=== PATIENT | female | born 1950 | race Caucasian/White ===

== ENCOUNTER 2017-11-04 14:56 | Outpatient (CLI) | payer MEDICARE | END 2017-11-04 14:57 | disposition home or self-care (01) | LOC: BICMAMMO 14:56 | PROVIDERS: ATTEND Family Medicine | DX: Z12.31 Encounter for screening mammogram for malignant neoplasm of breast (principal); Z80.3 Family history of malignant neoplasm of breast | CPT/HCPCS: 77063; 77067 ==

== ENCOUNTER 2018-10-06 07:28 | Outpatient (CLI) | payer MEDICARE ==
--- NOTE | 2018-10-06 15:11 | NM ---
NUCLEAR MEDICINE GASTRIC EMPTYING STUDY: HISTORY: Food in esophagus causing other injury, initial encounter. Hiatal hernia. Reflux. COMPARISON: None. TECHNIQUE: Imaging of the abdomen was performed after the oral administration of 2.2 millicuries technetium 99m sulfur colloid in an egg. FINDINGS: At 30 minutes, there was 0% emptying. At 1 hour, there was 0% emptying. At 2 hours, there was 1% em ptying. At 3 hours, there was 1% emptying. At 4 hours, there was 20% emptying. IMPRESSION: Severely delayed gastric emptying. Recommend correlation for gastric outlet obstruction versus gastroparesis. POS: [facility]
== END 2018-10-06 07:29 | disposition home or self-care (01) ==
LOC: NM 07:28
PROVIDERS: ATTEND Internal Medicine Gastroenterology
DX: T18.128A Food in esophagus causing other injury, initial encounter (principal); K30 Functional dyspepsia
CPT/HCPCS: 78264; A9541

== ENCOUNTER 2018-10-12 14:00 | Outpatient (CLI) | payer MEDICARE ==
[~2018-10-12 14:00] MED LIST: ISOVUE-370 76%-LOCM 1 ML ONE
--- NOTE | 2018-10-12 16:58 | CT ---
CT ABDOMEN AND PELVIS WITH CONTRAST 10/12/18 HISTORY: K30 - delayed gastric emptying. COMPARISON: None. FINDINGS: Mild atelectasis in the lung bases. There is distention of the stomach with contrast material. No obs tructing mass is appreciated. There is contrast from the small bowel and the large bowel. There is moderate diverticular disease of the sigmoid colon without active current inflammation. The appendix is visualized and is normal. The aortoiliac contour is normal. Mild renal cortical atrophy. No abnormal enhancing mass. The adrenal glands are unremarkable. Small cyst in hepatic segment III. There is a subtle hypodensity hepatic segment VIII too small to characterize on this study, axial venus ge 20 measuring approximately 5 mm. No retroperitoneal adenopathy. No acute osseous abnormality. There is a focal cortical lucency of the left ileum on axial image 63, coronal image 37 which may reflect a focal area of rarefaction. There is an adjacent soft tissue mass only seen on this single slice. No other suspicious foci of lytic or blastic lesions. IMPRESSION: No acute intra-abdominal abnormality. The contrast is seen transit through the stomach, small bowel a nd large bowel. No obstructing mass is appreciated. Normal proximal small bowel rotation. POS: [facility]
== END 2018-10-12 14:01 | disposition home or self-care (01) ==
LOC: BICCT 14:00
PROVIDERS: ATTEND Internal Medicine Gastroenterology
DX: K30 Functional dyspepsia (principal); T18.128A Food in esophagus causing other injury, initial encounter
CPT/HCPCS: 74177; 82565; Q9966

== ENCOUNTER 2020-01-02 | Outpatient (CLI) | payer MEDICARE | END 2020-01-02 15:14 | disposition home or self-care (01) | DX: M81.0 Age-related osteoporosis without current pathological fracture (principal); M85.88 Other specified disorders of bone density and structure, other site ==

== ENCOUNTER 2021-02-20 15:01 | Outpatient (CLI) | payer MEDICARE | END 2021-02-20 15:02 | disposition home or self-care (01) | LOC: BICMAMMO 15:01 | PROVIDERS: ATTEND Internal Medicine Endocrinology, Diabetes & Metabolism | DX: M81.0 Age-related osteoporosis without current pathological fracture (principal); M85.88 Other specified disorders of bone density and structure, other site | CPT/HCPCS: 77080 ==

== ENCOUNTER 2021-09-04 13:03 | Outpatient (CLI) | payer MEDICARE | END 2021-09-04 13:04 | disposition home or self-care (01) | LOC: BICMAMMO 13:03 | PROVIDERS: ATTEND Family Medicine | DX: Z12.31 Encounter for screening mammogram for malignant neoplasm of breast (principal); Z80.3 Family history of malignant neoplasm of breast; Z85.828 Personal history of other malignant neoplasm of skin | CPT/HCPCS: 77063; 77067 ==

== ENCOUNTER 2022-02-21 14:13 | Outpatient (CLI) | payer MEDICARE | END 2022-02-21 14:14 | disposition home or self-care (01) | LOC: BICMAMMO 14:13 | PROVIDERS: ATTEND Internal Medicine Rheumatology | DX: M81.0 Age-related osteoporosis without current pathological fracture (principal) | CPT/HCPCS: 77080 ==

== ENCOUNTER 2024-07-12 09:15 | Outpatient (CLI) | payer MEDICARE | END 2024-07-12 09:16 | disposition home or self-care (01) | LOC: BICRAD 09:15 | PROVIDERS: ATTEND Family Medicine | DX: M25.561 Pain in right knee (principal); M17.11 Unilateral primary osteoarthritis, right knee ==

== ENCOUNTER 2024-09-01 16:40 | Outpatient (CLI) | payer MEDICARE | END 2024-09-01 16:41 | disposition home or self-care (01) | LOC: RAD 16:40 | DX: J20.8 Acute bronchitis due to other specified organisms (principal) | CPT/HCPCS: 36415; 71046; 80053; 85025 ==

== ENCOUNTER 2024-09-16 11:10 | Outpatient (CLI) | payer MEDICARE | END 2024-09-16 11:11 | disposition home or self-care (01) | LOC: BICRAD 11:10 | PROVIDERS: ATTEND Family Medicine | DX: S43.422D Sprain of left rotator cuff capsule, subsequent encounter (principal); S43.491D Other sprain of right shoulder joint, subsequent encounter; M19.011 Primary osteoarthritis, right shoulder; M19.012 Primary osteoarthritis, left shoulder ==